=== PATIENT | male | born 1990 | race Caucasian/White ===

== ENCOUNTER 2023-08-09 19:43 | Emergency (ER) | payer BC ==
[2023-08-09] MEDS: Silver Sulfadiazine 1% Crm 400 GM Jar TOP SCH (20:43)
[2023-08-09] MEDS: Diphtheria,Pertussis(Acell),Tetanus Vaccine 0.5 ML Syringe IM ONE (21:15)
== END 2023-08-09 21:34 | disposition home or self-care (01) ==
LOC: JD.ED 19:43
DX: T23.272A Burn of second degree of left wrist, initial encounter (principal); X11.0XXA Contact with hot water in bath or tub, initial encounter; Z23 Encounter for immunization
CPT/HCPCS: 90471; 90715; 99283-25; A9270-GY